=== PATIENT | female | born 1965 | race Caucasian/White ===

== ENCOUNTER 2017-07-21 20:30 | Outpatient (CLI) | payer BC | END 2017-07-21 20:31 | disposition home or self-care (01) | LOC: SLEEPLAB 20:30 | PROVIDERS: ATTEND Otolaryngology | DX: G47.33 Obstructive sleep apnea (adult) (pediatric) (principal); R06.83 Snoring; R53.83 Other fatigue; R09.89 Other specified symptoms and signs involving the circulatory and respiratory systems | CPT/HCPCS: 95811 ==

== ENCOUNTER 2018-01-13 08:10 | Outpatient (CLI) | payer BC | END 2018-01-13 08:11 | disposition home or self-care (01) | LOC: BICMAMMO 08:10 | PROVIDERS: ATTEND Obstetrics & Gynecology | DX: Z12.31 Encounter for screening mammogram for malignant neoplasm of breast (principal); Z80.3 Family history of malignant neoplasm of breast | CPT/HCPCS: 77063; 77067 ==

== ENCOUNTER 2018-07-06 09:06 | Outpatient (CLI) | payer BC ==
[2018-07-06 10:39] LABS: #Basophils 0.1 thou/uL (0.0-0.2); #Eosinphils 0.2 thou/uL (0.0-0.7); #Lymphocytes 2.4 thou/uL (1.20-3.40); #Monocytes 0.4 thou/uL (0.11-0.59); %Basophils 1.2 % (0.0-1.0); %Eosinophils 3.3 % (0.0-10.0); %Lymphocytes 33.9 % (21.0-51.0); %Monocytes 5.1 % (0.0-10.0); %Neutrophils 56.5 % (42.0-75.0); Hemoglobin 12.9 g/dL (12.0-16.0); Mean Corpuscular HGB CONC 32.5 g/dL (32.0-36.0); Mean Corpuscular Hemoglobin 25.9 pg (27.0-31.0); Mean Corpuscular Volume 79.7 fL (78.0-98.0); Mean Platelet Volume 9.1 fL (7.4-10.4); Platelet Count 235 thou/uL (130-400); Red Blood Cell (RBC) Count 4.97 mill/uL (4.20-5.40); White Blood Cell (WBC) Count 7.1 thou/uL (4.8-10.8)
[2018-07-06 10:52] LABS: Anion Gap 9 mmol/L (10-20); BUN (Urea Nitrogen) 19 mg/dL (9.8-20.1); Calc. Creatinine Clearance 0 mL/min (70-130); Calcium 9.6 mg/dL (7.8-10.44); Carbon Dioxide 30 mmol/L (22-29); Chloride 106 mmol/L (98-107); Estimated GFR-MDRD Greater than 90; Glucose 96 mg/dL (70-105); Potassium 3.9 mmol/L (3.5-5.1); Sodium 141 mmol/L (136-145)
== END 2018-07-06 09:07 | disposition home or self-care (01) ==
LOC: LABBT 09:06
PROVIDERS: ATTEND Orthopaedic Surgery
DX: Z01.812 Encounter for preprocedural laboratory examination (principal); S83.242A Other tear of medial meniscus, current injury, left knee, initial encounter
CPT/HCPCS: 80048; 85025

== ENCOUNTER 2018-07-11 06:42 | Day surgery (SDC) | payer BC ==
[2018-07-06 09:35] VITALS: BMI 37.8
[2018-07-11] MEDS ORDERED: PROPOFOL 20 ML ONE (07:37)
[2018-07-11] MEDS ORDERED: Clindamycin/D5W 600 mg/50 ml Premix Bag ONE (08:59)
--- NOTE | 2018-07-11 10:57 | OP ---
DATE OF PROCEDURE: 07/11/2018 PREOPERATIVE DIAGNOSIS: Medial lateral meniscus tear, left knee. POSTOPERATIVE DIAGNOSIS: Medial lateral meniscus tear, left knee. SURGEON: George Smith M.D. ANESTHESIA: General. BLOOD LOSS: Minimal. SPECIMEN: None. DRAINS: None. COMPLICATIONS: None. TOURNIQUET: Not used. 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 PROCEDURE IN DETAIL: I made a lateral portal for the scope, medial portal for the shaver and punch f orceps. I debrided the medial meniscus using basket type punch and then smoothed using a 4-0 full ra dius resector and probed the meniscus and confirmed it is stable. I irrigated the loose piece of car tilage from the joint. Intercondylar notch examination is intact. Lateral compartment showed tearin g of this partial discoid meniscus. I debrided the inner portion of the discoid lateral meniscus and irrigated the loose fragments from the joint, checked the suprapatellar pouch for loose bodies and t he gutters for loose bodies and there were no loose bodies. The knee was then irrigated. Sterile dr essings applied.
[2018-07-11] MEDS ORDERED: Bupivacaine HCl 0.5%/Epinephrine 1:200,000/PF 30 ml Vial ONE (14:14)
[2018-07-11] MEDS ORDERED: Lidocaine 2% w/Epinephrine 1:200K 20 ML VIAL ONE (14:14)
[2018-07-11] MEDS ORDERED: PHENYLEPHRINE-NS 100 MCG/ML 10 ML SYRINGE ONE (15:09)
[2018-07-11] MEDS ORDERED: Lidocaine 1% PF 5 ML VIAL ONE (15:09)
[2018-07-11] MEDS ORDERED: Ondansetron PF 4 MG/2 ML Vial ONE (15:09)
[2018-07-11] MEDS ORDERED: PROPOFOL 200 MG/20 ML VIAL ONE (15:09)
[2018-07-11] MEDS ORDERED: Dexamethasone 20 MG/5 ML VIAL ONE (15:09)
== END 2018-07-11 12:30 | disposition home or self-care (01) ==
LOC: SDC 06:42
PROVIDERS: ATTEND Orthopaedic Surgery
PROC: 0SBD4ZZ Excision of Left Knee Joint, Percutaneous Endoscopic Approach (ICD-10-PCS; principal; 2018-07-11)
DX: S83.271A Complex tear of lateral meniscus, current injury, right knee, initial encounter (principal); S83.242A Other tear of medial meniscus, current injury, left knee, initial encounter; E78.00 Pure hypercholesterolemia, unspecified; Z88.0 Allergy status to penicillin; Z88.5 Allergy status to narcotic agent
CPT/HCPCS: G8978-GP-CJ; G8979-GP-CJ; G8980-GP-CJ; J0670; J1100; J2001; J2405; J2704; J3490

== ENCOUNTER 2021-08-19 14:56 | Outpatient (CLI) | payer OTHER | END 2021-08-19 14:57 | disposition home or self-care (01) | LOC: BICMAMMO 14:56 | PROVIDERS: ATTEND Family Medicine | DX: Z12.31 Encounter for screening mammogram for malignant neoplasm of breast (principal); Z80.3 Family history of malignant neoplasm of breast; Z91.89 Other specified personal risk factors, not elsewhere classified | CPT/HCPCS: 77063; 77067 ==

== ENCOUNTER 2023-03-27 03:28 | Emergency (ER) | payer OTHER ==
[2023-03-27] MEDS ORDERED: Famotidine 20 MG TAB ONE (03:53)
[2023-03-27] MEDS ORDERED: Dexamethasone 4 MG TAB ONE (03:53)
== END 2023-03-27 04:44 | disposition home or self-care (01) ==
LOC: ERS 03:28
DX: T78.40XA Allergy, unspecified, initial encounter (principal)
CPT/HCPCS: 99282; J8540